=== PATIENT | female | born 1965 | race Caucasian/White ===

== ENCOUNTER 2019-10-26 15:32 | Observation (INO) | payer BC, SELFPAY ==
[2019-10-26] VITALS (7 sets, daily range): BP systolic 148–178; BP diastolic 74–88; PULSE 68–80; RESP 14–21; TEMP 36.7; O2SAT 98–100
--- NOTE | 2019-10-26 15:37 | XRR_ITS ---
PROCEDURE INFORMATION: Exam: XR Chest, 1 View Exam date and time: 10/26/2019 3:38 PM Age: 54 years old Clinical indication: Chest pain; Type not specified TECHNIQUE: Imaging protocol: XR of the chest Views: 1 view. COMPARISON: No relevant prior studies available. FINDINGS: Lungs: Calcified granuloma in the right mid lung. Small focus of subtle opacity in the right lung base which may represent developing infiltrates. Pleural space: Unremarkable. No pleural effusion. No pneumothorax. Heart/Mediastinum: Unremarkable. No cardiomegaly. Bones/joints: Unremarkable. XR/XR chest 1V portable [id number] IMPRESSION: Small focus of opacity at the right lung base which may represent developing infiltrates. Follow-up is suggested.
--- NOTE | 2019-10-26 15:38 | ECG_ITS ---
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 Measurements Intervals [place] Rate: 71 P: 70 ID: [id number] QRS: 61 QRSD: 89 T: 44 QT: 390 QTc: 425 Interpretive Statements SINUS RHYTHM No previous ECG available for comparison Electronically Signed On 10-27-2019 17:24:17 CDT by Natanael Benitez M.D. [id number] f
--- NOTE | 2019-10-26 16:06 | W.ED.CHESTPA ---
Documented by User: RALEIGH Gan 10/27/19 07:01 HPI - Chest Pain General: Chief Complaint: Chest Pain Stated Complaint: CHEST PAIN Time Seen by Provider: 10/26/19 15:37 Source: patient, family and EMS Mode of arrival: EMS Limitations: no limitations History of Present Illness: HPI narrative: Patient is a 54-year-old female who presents to ED today via EMS for complaints of chest pains. Patient tells me over the past few months she has been having almost daily episodes of right shoulder pain that then seems to move into her substernal chest. She describes the pain in her shoulder as sharp and the discomfort in her chest is heavy. She states she has seen her PCP Dr. Avina for this who has prescribed her nitro tablets. She was just given these on . She was supposed to be scheduled for an outpatient stress test/echocardiogram but this has not been completed yet. Patient has never seen a wash driller. She states around 2:30 PM while at work, she began having similar symptoms and took a nitro. She states one of her coworkers commented that her speech seemed to be slurred. She states this lasted approximately 30 minutes and seemed to subside upon arrival of EMS. During my examination in the room states that her speech is normal. She was given a second nitro in route. Upon arrival patient is not having any pain to her shoulder or chest. Patient's PMH is significant for HTN. MD complaint: chest pain Timing of current episode: episodic and now resolved Prior episodes: Yes Onset: during rest Pain location: substernal and other (R shoulder) Associated symptoms: Deny abdominal pain, dyspnea, fever(s), nausea, palpitations, syncope or vomiting Review of Systems Const: Denies: fever(s), chills, body aches, change in appetite, change in weight, fatigue or malaise Eyes: Denies: change in vision, blurry vision, photophobia, floaters or seeing flashes Card: Reports: chest pain; Denies: palpitations, irregular heart rhythm, edema, swelling of feet/ankles, lightheadedness, syncope, pre-syncope, dyspnea on exertion, orthopnea or leg pain with exertion Resp: Denies: dyspnea, productive cough, non-productive cough, pain on inspiration, hemoptysis or chest congestion GI: Denies: abdominal pain, nausea, vomiting, heartburn or diarrhea : Denies: flank pain, difficulty voiding, dysuria, urinary frequency or urinary urgency Musc: Reports: joint pain (R shoulder); Denies: neck pain, back pain, extremity pain, extremity swelling, joint swelling or joint redness Skin/Breast: Denies: rash Neuro: Reports: Slurred speech present (for approx 30 mins-fully subsided now); Denies: headache(s), numbness in extremities, weakness in extremities or sensory changes PFSH ED PFSH: Medical History (Updated 10/26/19 @ 19:51 by Natanael Currie MD) Hypertension Surgical History (Updated 10/26/19 @ 19:49 by Natanael Currie MD) No pertinent past surgical history Family History (Updated 10/26/19 @ 19:49 by Natanael Currie MD) Grandmother Cancer Bone cancer Denies family history of CAD (coronary artery disease) Family history of premature coronary artery disease Lung disease Social History (Updated 10/26/19 @ 19:49 by Natanael Currie MD) Smoking and tobacco status: never smoked Alcohol intake: never Substance/Drug Use: never Household members: spouse Housing: House Current occupational status: employed Physical Exam Const: COMMON NORMALS: no acute distress, average body habitus, patient oriented x3, no limitations, healthy appearing, alert and well nourished ORIENTATION/CONSCIOUSNESS: Yes oriented to person, Yes oriented to place and Yes oriented to time HENMT: COMMON NORMALS: normocephalic and atraumatic HEAD & SCALP: normocephalic and atraumatic Eye: COMMON NORMALS: Equal, round and reactive pupils present, EOMs intact bilaterally, conjunctivae normal and no scleral icterus GENERAL EYE: appearance normal, both eyes and all related structures CONJUNCTIVA: Yes conjunctivae normal PUPIL: Yes Equal, round and reactive pupils present Neck/C-Spine: COMMON NORMALS: full ROM, no lymphadenopathy and no meningeal signs Chest: COMMONS NORMALS: normal inspection of the chest and normal palpation of entire chest wall Resp: COMMON NORMALS: normal respiratory effort and clear to auscultation bilaterally AUSCULTATION: clear to auscultation bilaterally Cardio: COMMON NORMALS: regular rate and regular rhythm RATE: regular rate RHYTHM: regular rhythm GI: COMMON NORMALS: Normal to inspection, nondistended, normoactive bowel sounds present, Soft to palpation, non-tender, No hepatosplenomegaly present and no masses PALPATION: Yes Soft to palpation and Yes No hepatosplenomegaly present Back/Pelvis: COMMON NORMALS: thoracic and lumbar spine normal to inspection, no thoracic nor lumbar tenderness and thoraco-lumbar ROM normal Extremity: COMMON NORMALS: normal to inspection and full ROM GENERAL: Yes normal exam except as noted Neuro: FIONA COMA SCALE: document GCS findings Fiona coma scale eye opening: Spontaneous Fiona coma scale verbal response: Orientated Fiona coma scale motor response: Obey commands [place] coma scale total score: 15 COMMON NORMALS: patient oriented x3, CN's II-XII intact bilaterally, moves all extremities, no focal motor deficits and no sensory deficits noted SENSORIUM/ORIENTATION: Yes alert, Yes oriented to person, Yes oriented to place and Yes oriented to time MENINGEAL SIGNS: Yes no meningeal signs Skin: COMMON NORMALS: no rashes or lesions noted GENERAL SKIN EXAM: no rashes or lesions noted Course Vital Signs: Vital signs: Vital Signs Temperature 98.0 F 10/27/19 04:00 Pulse Rate 60 10/27/19 04:00 Respiratory Rate 16 10/27/19 04:00 Blood Pressure 157/83 10/27/19 04:00 Pulse Oximetry 98 10/27/19 04:00 MDM - Chest Pain Lab Data: Labs: Lab Results 10/26/19 10/26/19 10/26/19 Range/Units 16:19 16:19 16:19 WBC 5.1 (4.0-10.0) 10^3/ uL RBC 4.02 L (4.1-5.3) 10^6/u L Hgb 11.5 (11.5-15.3) g/dL Hct 36.4 L (37.0-47.0) % MCV 90.5 (81-99) fL MCH 28.6 (28.0-34.0) pg MCHC 31.6 (30.0-36.0) g/dL RDW 11.3 L (12.1-15.1) % Plt Count 240 (130-400) 10^3/c mm MPV 10.5 H (7.4-10.4) fL Neut % (Auto) 65.5 % Lymph % (Auto) 22.9 % [place] % (Auto) 8.8 % Eos % (Auto) 2.0 % Baso % (Auto) 0.4 % Neut # (Auto) 3.35 (1.8-7.7) 10^3/u L Lymph # (Auto) 1.2 (0.8-4.8) 10^3/u L [place] # (Auto) 0.5 (0.2-0.9) 10^3/u L Eos # (Auto) 0.1 (0.0-0.8) 10^3/u L Baso # (Auto) 0.0 (0.0-0.1) 10^3/u L Nucleated RBC % (a uto) 0 % Nucleated RBCs # 0.0 /100WBC Sodium 141 (136-145) mmol/L Potassium 3.6 (3.5-5.1) mmol/L Chloride 103 (98-107) mmol/L Carbon Dioxide 31 H (22-29) mmol/L Anion Gap 10.6 (5-19) BUN 12 (6-20) mg/dL Creatinine 0.7 (0.5-0.9) mg/dL GFR Calculation 86.6 L (90-130) mL/min Glucose 116 H (65-115) mg/dL Estimat Average Gl ucose Hemoglobin A1c (4.0-6.0) % Calculated Osmolal ity 289 (285-295) mOsm/k g Calcium 9.4 (8.5-10.5) mg/dL Total Bilirubin 0.2 (0.15-1.2) mg/dL AST 17 (0-32) U/L ALT 12 (0-33) U/L Alkaline Phosphata se 86 (35-105) IU/L Troponin T Baselin e 6 (0-10) ng/L Troponin T 120 Min [place] (0-10) ng/L Delta Troponin T (0-10) ABS# Total Protein 7.3 (6.6-8.7) g/dL Albumin 4.4 (3.5-5.2) g/dL Globulin 2.9 (1.3-4.6) g/dL Triglycerides (0-150) mg/dL Cholesterol (0-200) mg/dL LDL Cholesterol, C alc (50-129) mg/dL HDL Cholesterol (60-100) mg/dL LDL/HDL Ratio (0.00-3.22) RATI O Cholesterol/HDL Ra flory (0.0-4.40) mg/dL TSH (0.27-4.20) uIU/ mL 10/26/19 10/26/19 10/26/19 Range/Units 16:19 16:19 18:07 WBC (4.0-10.0) 10^3/ uL RBC (4.1-5.3) 10^6/u L Hgb (11.5-15.3) g/dL Hct (37.0-47.0) % MCV (81-99) fL MCH (28.0-34.0) pg MCHC (30.0-36.0) g/dL RDW (12.1-15.1) % Plt Count (130-400) 10^3/c mm MPV (7.4-10.4) fL Neut % (Auto) % Lymph % (Auto) % [place] % (Auto) % Eos % (Auto) % Baso % (Auto) % Neut # (Auto) (1.8-7.7) 10^3/u L Lymph # (Auto) (0.8-4.8) 10^3/u L [place] # (Auto) (0.2-0.9) 10^3/u L Eos # (Auto) (0.0-0.8) 10^3/u L Baso # (Auto) (0.0-0.1) 10^3/u L Nucleated RBC % (a uto) % Nucleated RBCs # /100WBC Sodium (136-145) mmol/L Potassium (3.5-5.1) mmol/L Chloride (98-107) mmol/L Carbon Dioxide (22-29) mmol/L Anion Gap (5-19) BUN (6-20) mg/dL Creatinine (0.5-0.9) mg/dL GFR Calculation (90-130) mL/min Glucose (65-115) mg/dL Estimat Average Gl ucose 120 Hemoglobin A1c 5.8 (4.0-6.0) % Calculated Osmolal ity (285-295) mOsm/k g Calcium (8.5-10.5) mg/dL Total Bilirubin (0.15-1.2) mg/dL AST (0-32) U/L ALT (0-33) U/L Alkaline Phosphata se (35-105) IU/L Troponin T Baselin e (0-10) ng/L Troponin T 120 Min [place] 6.00 (0-10) ng/L Delta Troponin T 0 (0-10) ABS# Total Protein (6.6-8.7) g/dL Albumin (3.5-5.2) g/dL Globulin (1.3-4.6) g/dL Triglycerides 58 (0-150) mg/dL Cholesterol 119 (0-200) mg/dL LDL Cholesterol, C alc 60 (50-129) mg/dL HDL Cholesterol 47 L (60-100) mg/dL LDL/HDL Ratio 1.28 (0.00-3.22) RATI O Cholesterol/HDL Ra flory 2.53 (0.0-4.40) mg/dL TSH 4.59 H (0.27-4.20) uIU/ mL Imaging Data^: CXR: Radiologist's impression: [place] [address] XRay Report Signed Patient: Marisa Hess Unit #: [id number] : 1965 Age/Sex: 54 / F ADM Date: 10/26/19 Loc: ER Room/Bed: Attending Dr: Ordering Provider/Ordering MD: Dorina Banuelos Date of Service: 10/26/19 Procedure(s): XR chest 1V portable [id number] Accession Number(s): [id number] Report Number: [id number] PROCEDURE INFORMATION: Exam: XR Chest, 1 View Exam date and time: 10/26/2019 3:38 PM Age: 54 years old Clinical indication: Chest pain; Type not specified TECHNIQUE: Imaging protocol: XR of the chest Views: 1 view. COMPARISON: No relevant prior studies available. FINDINGS: Lungs: Calcified granuloma in the right mid lung. Small focus of subtle opacity in the right lung base which may represent developing infiltrates. Pleural space: Unremarkable. No pleural effusion. No pneumothorax. Heart/Mediastinum: Unremarkable. No cardiomegaly. Bones/joints: Unremarkable. XR/XR chest 1V portable [id number] IMPRESSION: Small focus of opacity at the right lung base which may represent developing infiltrates. Follow-up is suggested. Dictated By: Chandler Turcios MD Signed By: Chandler Turcios MD Signed Date/Time: 10/26/191628 DD/ 26 Discharge Plan Discharge Patient Disposition: Placed in Observation Admit Provider: Natanael Currie Clinical Impression: Brain TIA Chest pain Qualifiers: Chest pain type: unspecified Qualified Code(s): R07.9 - Chest pain, unspecified Condition: Stable Referrals: Dionisio Avina [Primary Care Provider] - Discharge Date/Time: 10/26/19 20:42 Coding Level of Care Code ED Goat Farmer for Chg Fwd Exam Comprehensive Documented by User: Jennifer Nunes MD 10/26/19 19:36 HPI - Chest Pain General: Chief Complaint: Chest Pain Stated Complaint: CHEST PAIN Time Seen by Provider: 10/26/19 15:37 PFS ED PFSH: Medical History (Updated 10/26/19 @ 19:51 by Natanael Currie MD) Hypertension Surgical History (Updated 10/26/19 @ 19:49 by Nataneal Currie MD) No pertinent past surgical history Family History (Updated 10/26/19 @ 19:49 by Natanael Currie MD) Grandmother Cancer Bone cancer Denies family history of CAD (coronary artery disease) Family history of premature coronary artery disease Lung disease Social History (Updated 10/26/19 @ 19:49 by Natanael Currie MD) Smoking and tobacco status: never smoked Alcohol intake: never Substance/Drug Use: never Household members: spouse Housing: House Current occupational status: employed Course ED course: I saw this patient with RALEIGH Gan. The patient is here for chest pain but also had slurred speech after taking 2 nitros. She has been having chest pain for some time and it has been getting more frequent. She does admit that it is exertional when she does physical activity. It does also happen at rest as it did today. The episode of slurred speech after the nitro is concerning for possible TIA, may be related to a drop in blood pressure. Her symptoms are concerning enough that she should come in the hospital for further evaluation. I discussed this with her and she agrees that this is acceptable plan. Dr. Currie has agreed to admit. Her physical exam is unremarkable. She has no right upper quadrant tenderness. She does still have her gallbladder and this could also be a cause of her right-sided pain. D-dimer was elevated on labs and a CT of the chest was done. This did not show a blood clot but does show a nodule which will require follow-up. Vital Signs: Vital signs: Vital Signs Temperature 98.0 F 10/27/19 04:00 Pulse Rate 60 10/27/19 04:00 Respiratory Rate 16 10/27/19 04:00 Blood Pressure 157/83 10/27/19 04:00 Pulse Oximetry 98 10/27/19 04:00 MDM - Chest Pain Lab Data: Labs: Lab Results 10/26/19 10/26/19 10/26/19 Range/Units 16:19 16:19 16:19 WBC 5.1 (4.0-10.0) 10^3/ uL RBC 4.02 L (4.1-5.3) 10^6/u L Hgb 11.5 (11.5-15.3) g/dL Hct 36.4 L (37.0-47.0) % MCV 90.5 (81-99) fL MCH 28.6 (28.0-34.0) pg MCHC 31.6 (30.0-36.0) g/dL RDW 11.3 L (12.1-15.1) % Plt Count 240 (130-400) 10^3/c mm MPV 10.5 H (7.4-10.4) fL Neut % (Auto) 65.5 % Lymph % (Auto) 22.9 % [place] % (Auto) 8.8 % Eos % (Auto) 2.0 % Baso % (Auto) 0.4 % Neut # (Auto) 3.35 (1.8-7.7) 10^3/u L Lymph # (Auto) 1.2 (0.8-4.8) 10^3/u L [place] # (Auto) 0.5 (0.2-0.9) 10^3/u L Eos # (Auto) 0.1 (0.0-0.8) 10^3/u L Baso # (Auto) 0.0 (0.0-0.1) 10^3/u L Nucleated RBC % (a uto) 0 % Nucleated RBCs # 0.0 /100WBC Sodium 141 (136-145) mmol/L Potassium 3.6 (3.5-5.1) mmol/L Chloride 103 (98-107) mmol/L Carbon Dioxide 31 H (22-29) mmol/L Anion Gap 10.6 (5-19) BUN 12 (6-20) mg/dL Creatinine 0.7 (0.5-0.9) mg/dL GFR Calculation 86.6 L (90-130) mL/min Glucose 116 H (65-115) mg/dL Estimat Average Gl ucose Hemoglobin A1c (4.0-6.0) % Calculated Osmolal ity 289 (285-295) mOsm/k g Calcium 9.4 (8.5-10.5) mg/dL Total Bilirubin 0.2 (0.15-1.2) mg/dL AST 17 (0-32) U/L ALT 12 (0-33) U/L Alkaline Phosphata se 86 (35-105) IU/L Troponin T Baselin e 6 (0-10) ng/L Troponin T 120 Min [place] (0-10) ng/L Delta Troponin T (0-10) ABS# Total Protein 7.3 (6.6-8.7) g/dL Albumin 4.4 (3.5-5.2) g/dL Globulin 2.9 (1.3-4.6) g/dL Triglycerides (0-150) mg/dL Cholesterol (0-200) mg/dL LDL Cholesterol, C alc (50-129) mg/dL HDL Cholesterol (60-100) mg/dL LDL/HDL Ratio (0.00-3.22) RATI O Cholesterol/HDL Ra flory (0.0-4.40) mg/dL TSH (0.27-4.20) uIU/ mL 10/26/19 10/26/19 10/26/19 Range/Units 16:19 16:19 18:07 WBC (4.0-10.0) 10^3/ uL RBC (4.1-5.3) 10^6/u L Hgb (11.5-15.3) g/dL Hct (37.0-47.0) % MCV (81-99) fL MCH (28.0-34.0) pg MCHC (30.0-36.0) g/dL RDW (12.1-15.1) % Plt Count (130-400) 10^3/c mm MPV (7.4-10.4) fL Neut % (Auto) % Lymph % (Auto) % [place] % (Auto) % Eos % (Auto) % Baso % (Auto) % Neut # (Auto) (1.8-7.7) 10^3/u L Lymph # (Auto) (0.8-4.8) 10^3/u L [place] # (Auto) (0.2-0.9) 10^3/u L Eos # (Auto) (0.0-0.8) 10^3/u L Baso # (Auto) (0.0-0.1) 10^3/u L Nucleated RBC % (a uto) % Nucleated RBCs # /100WBC Sodium (136-145) mmol/L Potassium (3.5-5.1) mmol/L Chloride (98-107) mmol/L Carbon Dioxide (22-29) mmol/L Anion Gap (5-19) BUN (6-20) mg/dL Creatinine (0.5-0.9) mg/dL GFR Calculation (90-130) mL/min Glucose (65-115) mg/dL Estimat Average Gl ucose 120 Hemoglobin A1c 5.8 (4.0-6.0) % Calculated Osmolal ity (285-295) mOsm/k g Calcium (8.5-10.5) mg/dL Total Bilirubin (0.15-1.2) mg/dL AST (0-32) U/L ALT (0-33) U/L Alkaline Phosphata se (35-105) IU/L Troponin T Baselin e (0-10) ng/L Troponin T 120 Min [place] 6.00 (0-10) ng/L Delta Troponin T 0 (0-10) ABS# Total Protein (6.6-8.7) g/dL Albumin (3.5-5.2) g/dL Globulin (1.3-4.6) g/dL Triglycerides 58 (0-150) mg/dL Cholesterol 119 (0-200) mg/dL LDL Cholesterol, C alc 60 (50-129) mg/dL HDL Cholesterol 47 L (60-100) mg/dL LDL/HDL Ratio 1.28 (0.00-3.22) RATI O Cholesterol/HDL Ra flory 2.53 (0.0-4.40) mg/dL TSH 4.59 H (0.27-4.20) uIU/ mL Discharge Plan Discharge Patient Disposition: Placed in Observation Admit Provider: Natanael Currie Clinical Impression: Brain TIA Chest pain Qualifiers: Chest pain type: unspecified Qualified Code(s): R07.9 - Chest pain, unspecified Condition: Stable Referrals: Dionisio Avina [Primary Care Provider] - Discharge Date/Time: 10/26/19 20:42 Coding Level of Care Code ED Goat Farmer for Chg Fwd Exam Comprehensive
--- NOTE | 2019-10-26 16:19 | CT_ITS ---
WS: [id number] CT HEAD TECHNIQUE: Noncontrast CT of the head obtained from the skullbase to the vertex. CLINICAL INFORMATION: episode of slurred speech COMPARISON: None. DLP: 665.[address] scans at [facility] use at least one of these dose optimization techniques: automat ed exposure control; mA and/or kV adjustment per patient size (includes targeted exams where dose is matched to clinical indication); or iterative reconstruction. FINDINGS: No evidence of intracranial hemorrhage or mass effect. Ventricular system and basal cisterns are lopez nt. Mild small vessel changes with mild parenchymal volume loss. No extra-axial fluid collections. No evidence of mass or mass effect. Normal lu-white differentiation. Paranasal sinuses and mastoid air cells are well aerated. .Normal visualized soft tissues. CT/CT head wo con* [id number] IMPRESSION: 1. No evidence of intracranial hemorrhage or mass effect. 2. Mild small vessel changes. Mild parenchymal volume loss. 3. No acute intracranial findings. Notified RALEIGH Gan at 10/26/2019 5:03 PM.
--- NOTE | 2019-10-26 16:26 | ECG_ITS ---
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 Measurements Intervals [place] Rate: 75 P: 71 [place]: 154 QRS: 68 QRSD: 89 T: 51 QT: 378 QTc: 425 Interpretive Statements SINUS RHYTHM Compared to ECG 10/26/2019 15:49:33 No significant changes Electronically Signed On 10-27-2019 17:24:43 CDT by Natanael Benitez M.D. [email or web address] stone [email or web address]/store/NU/[id number] f
--- NOTE | 2019-10-26 16:27 | PC.NURSE ---
patient c/o more chest pain radiating to back emd informed and ekg ordered
[2019-10-26 16:33] LABS: Basophils % 0.4 %; Eosinophils # 0.1 10^3/uL (0.0-0.8); Hematocrit 36.4 % (37.0-47.0); Hemoglobin 11.5 g/dL (11.5-15.3); Lymphocytes # 1.2 10^3/uL (0.8-4.8); Lymphocytes % 22.9 %; Mean Corpuscular HGB Conc 31.6 g/dL (30.0-36.0); Mean Corpuscular Hemoglobin 28.6 pg (28.0-34.0); Mean Corpuscular Volume 90.5 fL (81-99); Mean Platelet Volume 10.5 fL (7.4-10.4); Monocytes # 0.5 10^3/uL (0.2-0.9); Monocytes % 8.8 %; Neutrophils # 3.35 10^3/uL (1.8-7.7); Neutrophils % 65.5 %; Nucleated Red Blood Cells % 0 %; Platelet Count 240 10^3/cmm (130-400); Red Blood Count 4.02 10^6/uL (4.1-5.3); Red Cell Distribution Width 11.3 % (12.1-15.1); White Blood Count 5.1 10^3/uL (4.0-10.0)
--- NOTE | 2019-10-26 16:56 | CTR_ITS ---
PROCEDURE INFORMATION: Exam: CT Angiography Chest With Contrast Exam date and time: 10/26/2019 4:57 PM Age: 54 years old Clinical indication: Shortness of breath; Additional info: Syncope, SOB TECHNIQUE: Imaging protocol: Computed tomographic angiography of the chest with intravenous contrast. 3D rendering (Not supervised by radiologist): MIP and/or 3D reconstructed images were created by the technologist. Radiation optimization: All CT scans at this facility use at least one of these dose optimization techniques: automated exposure control; mA and/or kV adjustment per patient size (includes targeted exams where dose is matched to clinical indication); or iterative reconstruction. Contrast material: OMNI 350; Contrast volume: 68 ml; Contrast route: INTRAVENOUS (IV); COMPARISON: CR XR chest 1V portable [id number] 10/26/2019 4:00 PM RADIATION DOSE METRICS: Total DLP (mGy-cm): 406.69 FINDINGS: Pulmonary arteries: Normal. No pulmonary emboli. Aorta: Unremarkable. No aortic aneurysm. No aortic dissection. Lungs: Unremarkable. No consolidation. No masses. Calcified granuloma in the right upper lobe. 5 mm nodule in the right lung base. Pleural space: Unremarkable. No pneumothorax. No pleural effusion. Heart: Unremarkable. No cardiomegaly. No pericardial effusion. Lymph nodes: Unremarkable. No enlarged lymph nodes. Liver: Calcified granulomas in the liver and spleen. Bones/joints: Unremarkable. No acute fracture. Soft tissues: Unremarkable. CT/CT angio chest PE protcl [id number] IMPRESSION: No pulmonary embolism. Nodule in the right lung base measuring 5 mm.For patients at low risk (minimal or absent history of smoking and of other known risk factors), no routine follow-up is indicated. For patients at high risk (history of smoking or of other known risk factors), consider optional CT at 12 months. (Haley et al., Fleischner Society, 2017) Radiation Dose CTDIVOL = (mGy): DLP = 406.69 (mGy-cm)
[2019-10-26 17:01] LABS: Troponin(5th) Baseline 6 ng/L (0-10)
[2019-10-26 17:02] LABS: Alanine Aminotransferase 12 U/L (0-33); Albumin Level 4.4 g/dL (3.5-5.2); Alkaline Phosphatase 86 IU/L (35-105); Anion Gap 10.6 (5-19); Aspartate Amino Transferase 17 U/L (0-32); Blood Urea Nitrogen 12 mg/dL (6-20); Calcium 9.4 mg/dL (8.5-10.5); Carbon Dioxide 31 mmol/L (22-29); Chloride 103 mmol/L (98-107); Globulin 2.9 g/dL (1.3-4.6); Glomerular Filtration Rate 86.6 mL/min (90-130); Glucose 116 mg/dL (65-115); Osmolality Calculated 289 mOsm/kg (285-295); Potassium 3.6 mmol/L (3.5-5.1); Sodium 141 mmol/L (136-145); Total Bilirubin 0.2 mg/dL (0.15-1.2); Total Protein 7.3 g/dL (6.6-8.7)
[2019-10-26] MEDS: iohexol 350 mg/mL 100 mL Btl IV ×2 (17:06→20:01)
--- NOTE | 2019-10-26 17:38 | ECG_ITS ---
[facility] Test Date: 2019-10-26 Pat Name: Marisa Hess Department: Room: Gender: Female Calibration Checker: : 1965 Requested By: Dorina Banuelos Order Number: [id number] Theresa MD: Natanael Benitez M.D. Measurements Intervals [place] Rate: 67 P: 71 [place]: 150 QRS: 61 QRSD: 89 T: 45 QT: 390 QTc: 414 Interpretive Statements SINUS RHYTHM Compared to ECG 10/26/2019 16:31:33 No significant changes Electronically Signed On 10-27-2019 17:29:06 CDT by Natanael Benitez M.D. [id number]
[2019-10-26 18:50] LABS: Troponin 5 2HR Delta 0 ABS# (0-10)
--- NOTE | 2019-10-26 19:13 | PM.HP ---
Providers/Chief Complaint Primary Care Provider: Dionisio Avina Chief Complaint: CHEST PAIN History of Present Illness Marisa Hess is a 54 year old female who carries history of hypertension came in with chief complaint of right shoulder pain. Patient is stating that for last couple of months she has been experiencing numbness and tingling of her arms and fingers, sometimes she feels heavy while walking, she has been experiencing hot flashes, today she was at work around 1430, after eating her sandwich she started experiencing right-sided shoulder pain, for a similar pain she has been seeing a chiropractor, she is endorsing that chiropractor had manipulated really hard on on her neck area, her right shoulder pain was not getting better, it started radiating towards her chest, she started experiencing heaviness substernally without any shortness of breath, nausea, vomiting, diaphoresis. She is describing this discomfort as heaviness. She has never experienced this chest discomfort before. She is active for her age and is independent. She does not smoke or drink alcohol. Her chest discomfort was radiating towards her right neck area towards her jaw. She also noticed some numbness and tingling of her digits. She took 2 nitroglycerin which relieved her discomfort. Third nitroglycerin was given by the EMS. EMS noticed slurring of speech which resolved before she arrived to the ED. Diagnostics in the ER revealed hypertension, EKG revealed left atrial enlargement, hypertensive changes on EKG, patient was chest pain-free at the time of my evaluation, she had CTA done which did not show PE, chest x-ray showing mild vascular marking in right lung base however I do not see any infiltrate, CT scan mentioned 5 mm pulmonary nodule. Patient is a non-smoker. Troponin no significant delta, no ischemic or infarctive changes on EKG. No carotid bruit noted, NIH 0 Review of Systems Const: Reports: chills, body aches and fatigue; Denies: fever(s) Eyes: Denies: change in vision or blurry vision ENMT: Denies: throat pain Card: Reports: chest pain; Denies: palpitations, irregular heart rhythm, swelling of feet/ankles, dyspnea on exertion or orthopnea Resp: Denies: dyspnea GI: Denies: abdominal pain : Denies: flank pain Musc: Reports: neck pain Skin/Breast: Denies: rash Neuro: Reports: headache(s) Psych: Denies: anxiety Endo: Reports: flushing and hot flashes; Denies: polyuria Jonas/Lymph: Denies: easy bruising All/Imm: Denies: urticaria Medications/Allergies Home Medications Medication Instructions Recorded Confirmed Last Taken Type aspirin [Aspir-81] 81 mg PO DAILY 10/26/19 10/26/19 10/26/19 History hydrochlorothiazide 25 mg PO DAILY 10/26/19 10/26/19 10/24/19 History metoprolol succinate 100 mg PO DAILY 10/26/19 10/26/19 10/24/19 History nitroglycerin 0.4 mg SUBLINGUAL PRN 10/26/19 10/26/19 10/26/19 History Allergies Allergy/AdvReac Type Severity Reaction Status Date / Time No Known Allergies Allergy Unverified 10/26/19 16:35 PFSH Acute PFSH: Medical History (Updated 10/26/19 @ 19:51 by Natanael Currie MD) Hypertension Surgical History (Updated 10/26/19 @ 19:49 by Natanael Currie MD) No pertinent past surgical history Family History (Updated 10/26/19 @ 19:49 by Natanael Currie MD) Grandmother Cancer Bone cancer Denies family history of CAD (coronary artery disease) Family history of premature coronary artery disease Lung disease Social History (Updated 10/26/19 @ 19:49 by Natanael Currie MD) Smoking and tobacco status: never smoked Alcohol intake: never Substance/Drug Use: never Household members: spouse Housing: House Current occupational status: employed Vitals/I&O/Wt Last Vital Signs Pulse 68 10/26/19 18:36 Resp 21 H 10/26/19 18:36 BP 150/75 10/26/19 18:36 Pulse Ox 99 10/26/19 18:36 Physical Exam Narrative: EXAM NARRATIVE: Middle-aged thin built female sitting comfortably in her bed saturating well on room air Patient is chest pain-free S1-S2 no tachycardia carotid bruit noted Abdomen soft nontender nondistended bowel sound present, Ferguson's sign negative clear NIH 0, no neurological deficit, Lower extremity no edema gangrene or ulcer Lungs are clear to auscultation Appropriate mood and affect EOMI, PERRLA Data : 10/26/19 16:19 10/26/19 16:19 A&P Assessment and plan (1) Atypical chest pain: Status: Acute (2) Brain TIA: Status: Acute (3) Right lower lobe pulmonary nodule: Status: Acute Additional A&P Information Atypical chest pain Patient does not have any family history of premature coronary artery disease, heart score 2 Carries risk factors such as age, hypertension Her chest pain subsided with nitroglycerin I would request exercise stress test to rule out coronary ischemia, EKG shows sinus rhythm Echo in the morning Hold metoprolol succinate N.p.o. after midnight CTA ruled out PE Right shoulder pain Patient has been seeing a chiropractor, she has endorsed to excessive neck pressure-point maneuvers, rule out carotid dissection especially with history of slurred speech numbness of her digits, however clinically I do not hear any carotid bruit, no neurological signs or symptoms at the time of my evaluation Considering one episode of TIA I would start her on aspirin, Plavix and atorvastatin however she scores low on ABCD2 for major stroke from TIA. No biliary colic symptoms, negative Ferguson's sign I do not suspect biliary etiology to be causing right shoulder pain at this point Hypertension: Discontinue metoprolol succinate, along her hydrochlorothiazide I would add lisinopril 10 mg for now, she might need amlodipine as well at the time of discharge depending on her pressure, patient is stating that her blood pressure has been inconsistently high at home Right pulmonary nodule, she is a non-smoker, does not drink alcohol, no history of lung cancer in the family, she is low risk would recommend following up with her PCP for annual CT scan, I do not see any infiltrate on chest imaging DVT prophylaxis: Lovenox N.p.o. after midnight Full code Attestations Medical Necessity Statement*: Anticipating discharge in less than 48 hours currently need exercise stress test to rule out coronary ischemia CTA to rule out carotid dissection Time Spent in Patient Care: (>than 50% of time spent in counselling and/or direct pt care on unit). 50mins Coding Level of Care Code Acute Macadam Raker for Yousif Cannon Diagnoses Atypical chest pain R07.89 Brain TIA G45.9 Right lower lobe pulmonary nodule R91.1
--- NOTE | 2019-10-26 19:37 | CTR_ITS ---
PROCEDURE INFORMATION: Exam: CT Angiography Head With Contrast Exam date and time: 10/26/2019 7:52 PM Age: 54 years old Clinical indication: Speech disturbance and visual disturbance; Additional info: Neck pain, headache after chiropractor RX TECHNIQUE: Imaging protocol: Computed tomography angiography of the head with intravenous contrast. 3D rendering (Not supervised by radiologist): MIP and/or 3D reconstructed images were created by the technologist. Radiation optimization: All CT scans at this facility use at least one of these dose optimization techniques: automated exposure control; mA and/or kV adjustment per patient size (includes targeted exams where dose is matched to clinical indication); or iterative reconstruction. Contrast material: OMNI 350; Contrast volume: 95 ml; Contrast route: INTRAVENOUS (IV); COMPARISON: CT head wo con* [id number] 10/26/2019 4:47 PM RADIATION DOSE METRICS: Total DLP (mGy-cm): 1567.09 FINDINGS: ANTERIOR CIRCULATION: Right internal carotid artery: Unremarkable. Intracranial segment is patent with no significant stenosis. No aneurysm. Right middle cerebral artery: Unremarkable. No occlusion or significant stenosis. No aneurysm. Right anterior cerebral artery: Unremarkable. No occlusion or significant stenosis. No aneurysm. Left internal carotid artery: Unremarkable. Intracranial segment is patent with no significant stenosis. No aneurysm. Left middle cerebral artery: Unremarkable. No occlusion or significant stenosis. No aneurysm. Left anterior cerebral artery: Unremarkable. No occlusion or significant stenosis. No aneurysm. POSTERIOR CIRCULATION: Right vertebral artery: Unremarkable. No occlusion or significant stenosis. No aneurysm. Left vertebral artery: Unremarkable. No occlusion or significant stenosis. No aneurysm. Basilar artery: Unremarkable. No occlusion or significant stenosis. No aneurysm. Right posterior cerebral artery: Unremarkable. No occlusion or significant stenosis. No aneurysm. Left posterior cerebral artery: Unremarkable. No occlusion or significant stenosis. No aneurysm. IMPRESSION: No large vessel stenosis or occlusion. PROCEDURE INFORMATION: Exam: CT Angiography Neck With Contrast Exam date and time: 10/26/2019 7:52 PM Age: 54 years old Clinical indication: Speech disturbance and visual disturbance; Additional info: Neck pain, headache after chiropractor RX TECHNIQUE: Imaging protocol: Computed tomography angiography of the neck with intravenous contrast. 3D rendering (Not supervised by radiologist): MIP and/or 3D reconstructed images were created by the technologist. Radiation optimization: All CT scans at this facility use at least one of these dose optimization techniques: automated exposure control; mA and/or kV adjustment per patient size (includes targeted exams where dose is matched to clinical indication); or iterative reconstruction. Contrast material: OMNI 350; Contrast volume: 95 ml; Contrast route: INTRAVENOUS (IV); COMPARISON: CT head wo con* [id number] 10/26/2019 4:47 PM RADIATION DOSE METRICS: Total DLP (mGy-cm): 1567.09 FINDINGS: Right common carotid artery: No stenosis. No dissection or occlusion. Right internal carotid artery: No stenosis of the extracranial segment. No dissection or occlusion. Right external carotid artery: No occlusion or stenosis of the origin. Right vertebral artery: No stenosis. No dissection or occlusion. Left common carotid artery: No stenosis. No dissection or occlusion. Left internal carotid artery: No stenosis of the extracranial segment. No dissection or occlusion. Left external carotid artery: No occlusion or stenosis of the origin. Left vertebral artery: No stenosis. No dissection or occlusion. Bones/joints: No acute fracture. Soft tissues: Normal. No significant soft tissue swelling. CT/CT angio headneck* [id number] IMPRESSION: No stenosis or occlusion. REFERENCES: NASCET CRITERIA. The degree of internal carotid artery stenosis is based on NASCET criteria. Normal is no stenosis. Mild is less than 50% stenosis. Moderate is 50-69% stenosis. Severe is 70% to 99% stenosis. Total occlusion is no detectable patent lumen. Radiation Dose CTDIVOL = (mGy): DLP = 1567.09~1567.09 (mGy-cm)
[2019-10-26] MEDS: sodium chloride 0.45% 1,000 ML 30 ML IV (21:10)
[2019-10-26] MEDS: enoxaparin 40 mg/0.4 mL Syringe SUBCUT (21:10)
[2019-10-26 21:23] LABS: Chol HDL Ratio 2.53 mg/dL (0.0-4.40); Cholesterol 119 mg/dL (0-200); HDL Cholesterol 47 mg/dL (60-100); LDL Cholesterol Calculated 60 mg/dL (50-129); LDL HDL Ratio 1.28 RATIO (0.00-3.22); Thyroid Stimulating Hormone 4.59 uIU/mL (0.27-4.20); Triglycerides 58 mg/dL (0-150)
[2019-10-26 21:56] LABS: Estmated Average Glucose 120; Hemoglobin A1C 5.8 % (4.0-6.0)
[2019-10-26 22:47] LABS: Troponin 5 6HR Delta 0 ng/L (0-12)
[2019-10-27] VITALS: BP 162/84; PULSE 61; RESP 16; TEMP 36.6; O2SAT 100
[2019-10-27 04:00] VITALS: BP 157/83; PULSE 60; RESP 16; TEMP 36.7; O2SAT 98
[2019-10-27 05:19] LABS: Anion Gap 11.6 (5-19); Blood Urea Nitrogen 9 mg/dL (6-20); Calcium 8.8 mg/dL (8.5-10.5); Carbon Dioxide 30 mmol/L (22-29); Chloride 103 mmol/L (98-107); Glomerular Filtration Rate 103.4 mL/min (90-130); Glucose 108 mg/dL (65-115); Osmolality Calculated 289 mOsm/kg (285-295); Potassium 3.6 mmol/L (3.5-5.1); Sodium 141 mmol/L (136-145)
--- NOTE | 2019-10-27 06:00 | ECG_ITS ---
[facility] Test Date: 2019-10-27 Pat Name: Marisa Hess Department: Room: 278 Gender: Female Renal Medicine Physician: Macarena Bhatia : 1965 Requested By: Natanael Currie Order Number: [id number] Theresa MD: David Bailey M.D. Interpretive Statements NAME OF STUDY: LEXISCAN SESTAMIBI STRESS TEST INDICATION: [Chest Pain, ] PROCEDURE: At the baseline, the blood pressure was 195/105 mmHg, with a heart rate of 65 bpm. The electrocardiogram showed normal sinus rhythm, normal axis with normal ST and T waves. The Lexiscan was infused over the period Of 20 seconds. A total of 0.4 mg of Lexiscan was infused. The stress phase was continued for a total of 5 minutes. Heart rate at the end of stress phase was 82 bpm with a blood pressure of 160/91 mmHg. The EKG at peak infusion revealed sinus rhythm with no significant ST-T wave changes. Sestamibi was injected 20 seconds after the Lexiscan infusion. Pressure at the end of recovery phase was 160/90 mmHg,with a heart rate of 78 bpm. Conclusion: 1. Normal EKG response to Lexiscan infusion. 2. No Lexiscan induced chest pain or cardiac arrhythmia. 3. Normal blood pressure and heart rate response. 4. Sestamibi/sestamibi perfusion scan pending, see separate report. Electronically Signed On 10-29-2019 10:10:59 CDT by David Bailey M.D. [id number]
--- NOTE | 2019-10-27 07:50 | PC.NURSE ---
Stress test changed Pt Bp 195/105 and states took Metoprolol last noc. Dr Riley notified and states ok to change test to Lexiscan Mibi. Pt updated.
[2019-10-27 08:00] VITALS: BP 170/77; PULSE 69; RESP 16; TEMP 36.7; O2SAT 97
[2019-10-27] MEDS: regadenoson 0.4 Mg/5 ml Syringe IVP (08:00)
[2019-10-27 08:01] VITALS: BP 160/91; PULSE 84
[2019-10-27] MEDS: hydroCHLOROthiazide 25 mg Tablet PO (10:05)
[2019-10-27] MEDS: atorvastatin 40 mg Tablet 80 MG PO (10:05)
[2019-10-27] MEDS: clopidogrel 75 mg Tablet PO (10:06)
[2019-10-27] MEDS: lisinopril 10 mg Tablet PO (10:06)
--- NOTE | 2019-10-27 10:59 | PC.CHAP ---
Pastoral Care Encounter/Spiritual Assessment Type of Contact [] Declined surgery aid visit [] Patient/Family/Request visit [] Outpatient visit [] Follow-up visit [] Physician referral [] Code/Alert [x] Routine visit [] Staff referral [] Actively dying [] Patient sleeping [] Family support [] [] Out of room [] Palliative care [] [x] Receiving care in room [] Pre-surgical visit [] Trauma [] Long length of stay [] ICU visit [] Other: Relational/Emotional Strength [x] Patient feels connected with others/family/visitors/staff [] Distress [] Loneliness/isolation [] Abandonment Spirituality of Patient [x] Person of Erika [] Attends Jainism of their Erika [x] Believes in Prayer [] Reads Bible or Yarsanism materials [] There are Spiritual issues to be addressed Service Center Representative Interventions [x] Prayer [x] Active listening [x] Non-anxious presence [x] Spiritual/emotional support [] Crisis/trauma care [x] Spiritual counseling [] Bereavement support [] Provided bereavement packet [] Provided Bible/devotional materials [] Provided toy/stuffed animal, coloring book to patient or family member [] Provided Communion [] Anointing/[place] [] Salvation [x] Completed spiritual assessment [] Other: Impact on Illness or Injury [] Angry [] Fearful [] Anxious [] Often cries [] Exhaustion [] Unable to work [] Unable to attend protestant [] Unable to walk/stand [] Unable to read [] Unable to drive [] Unable to eat/drink [] Unable to sleep [] Unable to be with family [] Patient intubated [] Other: Summary Chest pain has HBP, doesn't know about new treatment, has a good attitude, feels good, wants to go home Time spent with patient 10 mins
[2019-10-27 11:45] VITALS: BP 147/88; PULSE 59; RESP 16; TEMP 36.7; O2SAT 100
[2019-10-27 13:31] LABS: Free T4 Free Thyroxine 1.51 ng/dL (0.82-1.77)
--- NOTE | 2019-10-27 14:12 | PC.NURSE ---
Patient gives verbal permission to given information to daughter in law Karen.
[2019-10-27 15:26] VITALS: BP 147/88; PULSE 59; RESP 16; TEMP 36.7; O2SAT 100
--- NOTE | 2019-10-27 19:19 | P.DS_ITS ---
Discharge Providers Date of Admission: 10/26/19 19:12 Date of Discharge: October 27, 2019 Attending Provider at Admission: Natanael Currie MD Attending Provider at Discharge: Jorge Alberto Riley Primary Care Provider: Dionisio Avina Diagnoses at Discharge Discharge Diagnosis (1) Atypical chest pain: Status: Acute (2) Brain TIA: Status: Acute (3) Right lower lobe pulmonary nodule: Status: Acute Reason for Visit Reason for Visit: CHEST PAIN Hospital Course Hospital Course: Very pleasant 54-year-old lady with history of hypertension was placed in observation after presenting with chest pain, right shoulder pain, as well as complaints of numbness and tingling of arm and fingers, sometimes feeling heavy while walking, previously having seen a chiropractor and having had manipulation performed on the neck area, and with pain radiating to her chest. She was having persistent heaviness in her chest, as well as chest discomfort radiating to the right side of the jaw. She took 2 nitroglycerin tablets at home for discomfort, and on initial assessment by EMS was noted to have slurring of speech. This resolved in ER. Due to concern for TIA she was assessed by CTA head and neck which did not reveal any significant obstruction. In ER was found to be hypertensive. She has been taking aspirin at home. Was started on Plavix, statin in addition. On EKG and series were not suggestive of acute CA. No PE or large vessel dissection seen on CTA chest. Echocardiogram was normal. Her chest pain had resolved, although was having still some pain in her right side back which was reproducible. She underwent additional testing by stress testing which did not show findings suspicious for significant coronary disease. Since her pain has been reproducible, and suspected more likely related to recent spine manipulation, this is suspected more musculoskeletal in nature. She is otherwise been feeling well and was happy to be returning home. Lisinopril was added to her blood pressure regimen on discharge. Please help her optimize control. While in the hospital she had no recurrence of any TIA-like symptoms. It is not clear as discussed with her whether her slurring of speech was perhaps after taking nitroglycerin, and not actually due to TIA, however, at this time is difficult to know, and so she is agreeable to continue for now aspirin at 325 mg and statin due to possibility of TIA. For now Plavix is not continued. Of note incidentally has been found to have slightly elevated TSH at 4.59. Free T4 was checked and was normal. Please follow-up thyroid function on nonurgent basis. Screen for any symptoms of thyroid abnormality. Of note also incidentally found to have a 5 mm right lower lobe nodule on chest CTA on presentation. She is a never smoker, reports only occasional exposure to secondhand smoke while walking through some areas at work, but never on a consistent basis, and more than 26 years ago. As she is rather low risk, perhaps no additional follow-up may be needed, but an optional 12-month CT may be considered. Please discuss with her in office. Physical Exam Const: COMMON NORMALS: no acute distress and patient oriented x3 HENMT: COMMON NORMALS: oropharynx normal Neck/C-Spine: COMMON NORMALS: no JVD Resp: COMMON NORMALS: normal respiratory effort and clear to auscultation bilaterally AUSCULTATION: clear to auscultation bilaterally Cardio: COMMON NORMALS: no JVD, regular rhythm, S1 normal heart sound present, S2 normal heart sound present and No murmurs present (Cardio) RHYTHM: regular rhythm HEART SOUNDS: S1 normal heart sound present and S2 normal heart sound present GI: COMMON NORMALS: Normal to inspection, nondistended, normoactive bowel sounds present, Soft to palpation and non-tender PALPATION: Yes Soft to palpation Extremity: COMMON NORMALS: no joint enlargement and no pedal edema Neuro: COMMON NORMALS: patient oriented x3 and moves all extremities Skin: COMMON NORMALS: no rashes or lesions noted GENERAL SKIN EXAM: no rashes or lesions noted Discharge Data Data Completed and Pending: Completed Studies During Hospitalization Category Date Time Status CT angio chest PE protcl [id number] Urge nt Cat Scan 10/26/19 16:[address] angio headneck * [id number] Stat Cat Scan 10/26/19 19:[address] head wo con* [id number] Urgent Cat Scan 10/26/19 16:19 Completed Sestamibi Stress Test Request Routi ne Exams 10/27/19 06:00 Draft XR chest 1V roni ble [id number] Urgent Exams 10/26/19 15:37 Completed NM bhavna perf SPECT r/s* [id number] Routin e Nuc Med 10/27/19 20:49 Completed CV echo complete* [id number] Routine Ultrasound 10/27/19 20:49 Completed Labs from last 24 hours 10/27/19 10/27/19 10/26/19 04:19 04:19 22:19 Sodium 141 Potassium 3.6 Chloride 103 Carbon Dioxide 30 H Anion Gap 11.6 BUN 9 Creatinine 0.6 GFR Calculation 103.4 Glucose 108 Estimat Average Gl ucose Hemoglobin A1c Calculated Osmolal ity 289 Calcium 8.8 Troponin T Hi Sens 6Hr 6.00 Troponin T Hi Sens 6Hr Delta 0 Triglycerides Cholesterol LDL Cholesterol, C alc HDL Cholesterol LDL/HDL Ratio Cholesterol/HDL Ra flory TSH Free T4 1.51 10/26/19 10/26/19 16:19 16:19 Sodium Potassium Chloride Carbon Dioxide Anion Gap BUN Creatinine GFR Calculation Glucose Estimat Average Gl ucose 120 Hemoglobin A1c 5.8 Calculated Osmolal ity Calcium Troponin T Hi Sens 6Hr Troponin T Hi Sens 6Hr Delta Triglycerides 58 Cholesterol 119 LDL Cholesterol, C alc 60 HDL Cholesterol 47 L LDL/HDL Ratio 1.28 Cholesterol/HDL Ra flory 2.53 TSH 4.59 H Free T4 Vitals: Last Vital Signs Temp 98.0 F 10/27/19 15:26 Pulse 59 L 10/27/19 15:26 Resp 16 10/27/19 15:26 BP 147/88 10/27/19 15:26 Pulse Ox 100 10/27/19 15:26 Discharge Plan Discharge Patient Disposition: Home Condition: Stable Prescriptions: New aspirin 325 mg tablet 325 mg PO DAILY Qty: 30 RF: 0 atorvastatin 40 mg Tablet 40 mg PO DAILY Qty: 30 RF: 0 lisinopril 5 mg tablet 5 mg PO DAILY Qty: 30 RF: 0 Continued metoprolol succinate 100 mg tablet extended release 24 hr 100 mg PO DAILY RF: 0 nitroglycerin 0.4 mg tablet, sublingual 0.4 mg sublingual PRN RF: 0 hydrochlorothiazide 25 mg tablet 25 mg PO DAILY RF: 0 Discontinued aspirin [Aspir-81] 81 mg Tablet,Delayed Release (Dr/Ec) 81 mg PO DAILY RF: 0 Discharge Orders: Discharge Order (Routine); Ordered 10/27/19 Ordered By: Jorge Alberto Riley Referrals: Dionisio Avina [Primary Care Provider] - 4-7 days (NEED TO CALL FOR APPOINTMENT OFFICE CLOSE TODAY) Discharge Diet: Cardiac Discharge Activity: Increase activity as tolerated Patient Instructions: Lisinopril (By mouth), Aspirin (By mouth), Atorvastatin (By mouth), Transient Ischemic Attack (DC), Chest Pain (DC), Pulmonary Nodules (DC) Activity Restrictions/Additional Instructions: Please monitor blood pressures at home 3 times daily, record values to bring to appointment with your primary care provider. It is difficult to say whether transient ischemic attack was present and the cause of episode of slurred speech you are having at the time of arrival of EMS. Due to this your dose of aspirin as per discussion was increased to 325 mg, and you were also started on a cholesterol medicine. Please discuss further with your primary care doctor. If you experience severe chest pain, any trouble speaking, numbness, weakness any side of your body, changes in vision, or any other abnormal symptoms, please seek medical attention. Please discuss with your primary care doctor minimal elevation in TSH. Please follow-up with your primary care doctor regarding back pain. Stress test is not suggestive of significant coronary disease. Please discuss with your primary care doctor also incidentally found 5 mm right lung base nodule. Due to low risk, no specific follow-up may be necessary, however, an optional CAT scan at 12 months can be considered. Discharge Date/Time: 10/27/19 15:00 Discharge Attestations Time Spent in Discharge Care*: greater than 30 min Quality Metrics Clinical Quality Measures During this hospital stay, did patient experience: None Coding Level of Care Code Acute S[employer] Business Analyst for Yousif Cannon Diagnoses Atypical chest pain R07.89 Brain TIA G45.9 Right lower lobe pulmonary nodule R91.1
--- NOTE | 2019-10-27 20:49 | NMCV_ITS ---
NM bhavna perf SPECT r/s* [id number] Marisa Hess Age: 54 Gender: F : 1965 Exam Date: 10/27/2019 06:48 Ordering Phys: Natanael Currie MD Technologist: FUNMI Cotto Exam Location: [facility] Indications: CHEST PAIN STRESS TEST Please see separate stress test report in [facility] for full findings IMAGE PROTOCOL Rest/Stress 1 Lexiscan Day Radiopharmaceutical Dose (mCi) Administration Site Administered by Rest: Tc-99m 10.8 IV FUNMI Hong Sestamibi Stress:Tc-99m 32.5 IV FNUMI Hong Sestamibi Rest: 27-Oct-2019 60 Discovery 630 Stress: 27-Oct-2019 30 Discovery 630 0.4mg Lexiscan. Images obtained in supine and prone position. SPECT RESULTS Technical Quality: Excellent Raw Data Analysis: Normal Image Corrections: No attenuation or motion correction applied Summed Stress Score: 0 Summed Rest Score: 0 Summed Difference Score: 0 PERFUSION FINDINGS SPECT images demonstrate homogeneous tracer distribution throughout the myocardium. FUNCTIONAL RESULTS (calculated via Gated SPECT) Stress Image LV EF (%): 61 Stress EDV (mL):76 TID: 1.11 Stress ESV (mL):30 FUNCTIONAL FINDINGS: The left ventricle is normal in size. Transient Ischemia Dilatation of 1.1. There is normal left ventricular systolic function. The left ventricular ejection fraction is normal with a value of 61%. There is normal left ventricular wall thickening. Normal end-diastolic and end-systolic volumes. IMPRESSIONS 1. Myocardial perfusion imaging is normal. 2. Overall left ventricular systolic function is normal without regional wall motion abnormalities. 3. The left ventricular ejection fraction is normal with a value of 61%. 4. This study suggests a low likelihood of angiographically significant coronary artery disease. Oralia Hurtado MD (Electronically Signed) Final Date: 27 October 2019 11:31 S
--- NOTE | 2019-10-27 20:49 | USCV_ITS ---
Marisa Hess Age: 54 Gender: F : 1965 Exam Date: 10/27/2019 13:47 Ordering Phys: Natanael Currie MD Technologist: Melodie Dubose Exam Location: [facility] [place] Indication: chest pain BP: 160 / 91 HR: 61 Rhythm: Sinus Technical Quality: Good MEASUREMENTS (Male / Female) Normal Values 2D ECHO LV Diastolic Diameter PLAX 4.5 cm 4.2 - 5.9 / 3.9 - 5.3 cm LV Systolic Diameter PLAX 2.8 cm IVS Diastolic Thickness 0.8 cm 0.6 - 1.0 / 0.6 - 0.9 cm IVS Systolic Thickness 0.8 cm LVPW Diastolic Thickness 0.5 cm 0.6 - 1.0 / 0.6 - 0.9 cm LVPW Systolic Thickness 1.4 cm LVOT Diameter 2.0 cm LV Ejection Fraction 2D Teich 68.1 % LV Ejection Fraction MOD 2C 62.2 % LV Ejection Fraction 2C AL 63.3 % LA Diameter 2.4 cm LA Width 1.4 cm LA Height 4.0 cm RA Width 2.6 cm RA Height 3.7 cm M-MODE LV Diastolic Diameter MM 4.3 cm 4.2 - 5.9 / 3.9 - 5.3 cm LV Systolic Diameter MM 2.8 cm LV Ejection Fraction MM Teich 63.0 % IVS Diastolic Thickness MM 0.7 cm 0.6 - 1.0 / 0.6 - 0.9 cm IVS Systolic Thickness MM 0.9 cm LVPW Diastolic Thickness MM 1.0 cm 0.6 - 1.0 / 0.6 - 0.9 cm LVPW Systolic Thickness MM 1.3 cm Aortic Annulus Diameter 2.6 cm LA Ao Ratio MM 0.9 MV E Point Septal Separation 0.5 cm DOPPLER AV Peak Velocity 119.0 cm/s LVOT Peak Velocity 87.0 cm/s AV Area Cont Eq vti 2.1 cm squared AV Area Cont Eq pk 2.4 cm squared MV Peak Velocity 90.0 cm/s MV Area PHT 3.2 cm squared Mitral E to A Ratio 0.8 MV E' Velocity 9.0 cm/s Mitral E to MV E' Ratio 5.7 Mitral E to LV E' Lateral Ratio 5.7 Mitral E to LV E' Septal Ratio 5.7 TR Peak Velocity 61.0 cm/s TR Peak Gradient 1.5 mmHg Right Atrial Pressure 3.0 mmHg Pulmonary Artery Systolic Pressu 4.5 mmHg PV Peak Velocity 86.0 cm/s RV Acceleration Time 0.1 s FINDINGS Left Ventricle Normal left ventricular size, systolic function and wall thickness, with no regional wall motion abnormalities. LVEF is 55 to 60%. Normal left ventricular wall thickness. Normal diastolic filling pattern. Right Ventricle The right ventricle is normal in size and function. Right Atrium The right atrium is normal in size. Left Atrium The left atrium is normal in size. Mitral Valve Structurally normal mitral valve without significant stenosis or prolapse. There is trace mitral regurgitation. Aortic Valve Structurally normal aortic valve without significant sclerosis or stenosis. There is no aortic regurgitation. Tricuspid Valve Structurally normal tricuspid valve without significant stenosis or regurgitation. Insufficient TR jet to measure RVSP. Normal RA pressure. Pulmonic Valve Structurally normal pulmonic valve without significant stenosis. There is trace pulmonic regurgitation. Pericardium Normal pericardium without effusion. Aorta Normal ascending aorta dimension. CONCLUSIONS LV systolic function is normal with EF of 55 to 60%. Normal diastolic function. David Bailey MD (Electronically Signed) Final Date: 27 October 2019 18:17 S
--- NOTE | 2019-10-30 09:32 | PC.RESP ---
PATIENT DOES NOT HAVE A QUALIFYING HX OF LUNG DISEASE AND DOES NOT QUALIFY FOR PULMONARY REHAB AT THIS TIME.
== END 2019-10-27 15:00 | disposition home or self-care (01) ==
LOC: ER 19:16 → MEDSURG 19:44
PROVIDERS: Physician Assistant; Admitting Provider Internal Medicine; Emergency Provider Family Medicine; PCP Family Medicine; Visit Provider Internal Medicine
DX: R07.89 Other chest pain (principal); G45.9 Transient cerebral ischemic attack, unspecified; M25.511 Pain in right shoulder; R91.1 Solitary pulmonary nodule; I10 Essential (primary) hypertension; Z79.82 Long term (current) use of aspirin
CPT/HCPCS: 12345; 36415; 70450; 70496; 70498; 71045; 71275; 78452; 80048; 80053; 80061; 83036; 84439; 84443; 84484; 85025; 93005; 93017; 93306; 96372; 99283; 99285; A9500; G0378; J1650; J2785; Q9967

== ENCOUNTER → 2020-08-29 11:33 | Outpatient (BNVA) | payer BC, SELFPAY | PROVIDERS: PCP Family Medicine; Visit Provider Nurse Practitioner Family | DX: Z20.822 Contact with and (suspected) exposure to COVID-19 (principal); J06.9 Acute upper respiratory infection, unspecified | CPT/HCPCS: 87635 ==

== ENCOUNTER 2021-11-30 14:23 | Outpatient (CLI) | payer BC, SELFPAY ==
--- NOTE | 2021-11-30 14:28 | MM_ITS ---
WS: [id number] BILATERAL 3D TOMOSYNTHESIS DIGITAL SCREENING MAMMOGRAPHY WITH CAD CLINICAL INFORMATION: SCREENING HISTORY: Screening mammogram. No current complaints. COMPARISON: 2009 TECHNIQUE: Bilateral CC and MLO views. FINDINGS: The breasts are composed of heterogeneous fibroglandular density tissue, which can limit the detectio n of small underlying mass lesions. No suspicious mass, asymmetry, calcifications, or architectural d istortion. No evidence of malignancy. MM/[place] [id number] IMPRESSION: BI-RADS: 1-Negative FOLLOW UP: 1 Year Follow-up Recommend return to annual screening mammography.
== END 2021-11-30 14:24 | disposition home or self-care (01) ==
LOC: RAD 14:24
PROVIDERS: PCP Family Medicine; Visit Provider Family Medicine
DX: Z12.31 Encounter for screening mammogram for malignant neoplasm of breast (principal)
CPT/HCPCS: 77063; 77067